=== PATIENT | female | born 1940 | race Caucasian/White ===

== ENCOUNTER 2021-11-01 11:31 | Inpatient (IN) | payer MEDICARE, MEDICAID ==
[~2021-11-01] VITALS: Ht 162.6 cm; Wt 80.3 kg
[~2021-11-01 11:31] MED LIST: PERCOCET 5/325 T1 EA PO; PREDNISONE20 MG PO; PROVENTIL HFA6.7 GM INH
[2021-11-01 12:08] LABS: HEMOGLOBIN 14.5 gm/dl (12.3-15.3); RED BLOOD COUNT 4.67 M/UL (4.00-5.10); WHITE BLOOD COUNT 5.5 K/UL (4.5-11.0)
[2021-11-01 12:30] LABS: BUN/CREATININE RATIO 24 (0-10)
[2021-11-01] MEDS ORDERED: LEVOTHYROXINE50 MCG PO (18:35)
[2021-11-02 06:47] LABS: HEMOGLOBIN 12.9 gm/dl (12.3-15.3); RED BLOOD COUNT 4.25 M/UL (4.00-5.10)
[2021-11-02 06:52] LABS: WHITE BLOOD COUNT 8.4 K/UL (4.5-11.0)
[2021-11-03 05:56] LABS: HEMOGLOBIN 13.4 gm/dl (12.3-15.3); RED BLOOD COUNT 4.41 M/UL (4.00-5.10); WHITE BLOOD COUNT 7.7 K/UL (4.5-11.0)
[2021-11-03 06:30] LABS: BUN/CREATININE RATIO 27 (0-10)
[2021-11-04 06:56] LABS: HEMOGLOBIN 13.9 gm/dl (12.3-15.3); RED BLOOD COUNT 4.51 M/UL (4.00-5.10); WHITE BLOOD COUNT 7.8 K/UL (4.5-11.0)
[2021-11-04 07:19] LABS: BUN/CREATININE RATIO 30 (0-10)
[2021-11-05 06:20] LABS: HEMOGLOBIN 13.8 gm/dl (12.3-15.3); RED BLOOD COUNT 4.55 M/UL (4.00-5.10); WHITE BLOOD COUNT 8.4 K/UL (4.5-11.0)
[2021-11-05 06:43] LABS: BUN/CREATININE RATIO 31 (0-10)
[2021-11-05] MEDS ORDERED: COZAAR 25MG TAB25 MG PO (11:04)
[2021-11-05] MEDS ORDERED: ATORVASTATIN CA20 MG PO (11:04)
[2021-11-05] MEDS ORDERED: AMLODIPINE BESYL5 MG PO (11:04)
[2021-11-05] MEDS ORDERED: COZAAR 50MG TAB50 MG PO (11:04)
[2021-11-05] MEDS ORDERED: ASPIRIN EC81 MG PO (11:04)
--- NOTE | 2021-11-05 13:07 | NUR ---
REPORT CALLED TO TAMELA AT [facility] [phone], PATIENT DISCHARGE PAPERS GIVEN TO DAUGHTER, IV DISCONTINUED, CATHETER TIP INTACT. PATIENT BEING TRANSPORTED BY PRIVATE VEHICLE. STAN NOTIFIED OF PATIENT GETTING READY TO LEAVE PER HER REQUEST.
== END 2021-11-05 13:39 | DRG 65 ==
LOC: ER1 11:31 → CDU 16:00 → MED SURG 4 16:00
PROVIDERS: Internal Medicine; Physician Assistant; Student in an Organized Health Care Education/Training Program; ADMIT Internal Medicine
PROC: B24BZZZ Ultrasonography of Heart with Aorta (ICD-10-PCS; principal; 2021-11-02)
DX: I63.9 Cerebral infarction, unspecified (principal); G81.92 Hemiplegia, unspecified affecting left dominant side; I50.32 Chronic diastolic (congestive) heart failure; E03.9 Hypothyroidism, unspecified; I65.21 Occlusion and stenosis of right carotid artery; I16.0 Hypertensive urgency; W01.0XXA Fall on same level from slipping, tripping and stumbling without subsequent striking against object, initial encounter; Z66 Do not resuscitate; E78.5 Hyperlipidemia, unspecified; I11.0 Hypertensive heart disease with heart failure; R20.2 Paresthesia of skin; E66.9 Obesity, unspecified; R29.700 NIHSS score 0; E04.1 Nontoxic single thyroid nodule; Z82.61 Family history of arthritis; Z68.31 Body mass index [BMI] 31.0-31.9, adult; Z82.3 Family history of stroke; Z88.0 Allergy status to penicillin; Z79.899 Other long term (current) drug therapy; Z79.82 Long term (current) use of aspirin; Z90.89 Acquired absence of other organs
CPT/HCPCS: ECHO; 36415; 70450; 70496; 70498; 70551; 80048; 80053; 81001; 82272; 82962; 83735; 84439; 84443; 84484; 85025; 85027; 85610; 85730; 92610; 93005; 93306; 96374; 96375; 97110-GP-CQ; 97112; 97162; 97165; 97530; 97530-GP-CQ; 99285; G0378; J0360; J2405; Q9967